=== PATIENT | male | born 1985 | race Caucasian/White ===

== ENCOUNTER → 2017-01-20 | Outpatient (CLI) | payer OTHER ==
[~2017-01-20] MED LIST: CEPH500C2 PO; DOCU-94 PO; IBUP-1450 PO; OXYC-57 PO
--- NOTE | 2017-01-20 13:20 | DIAGNOSTIC IMAGING REPORT ---
(TESTICULAR) SCROTUM-CONT CLINICAL HISTORY: 31 years-old Male presenting with PAIN IN RIGHT TESTICAL. TECHNIQUE: Real-time grayscale and color and spectral Doppler ultrasound imaging of the scrotum was performed. COMPARISON: None. FINDINGS: Right testis: Heterogeneous echogenicity and hypoechoic echotexture. There is suggestion of multiple lobular and round hypoechoic regions. Testis measures 4.1 x 1.9 x 2.8 cm. Relatively increased color Doppler flow to the right testis. Preserved arterial and venous spectral Doppler waveforms within the testis.The epididymis is enlarged although not significant hyperemic. Prominent 1.4 cm epididymal head cyst or spermatocele. Trace hydrocele. Left testis: Normal echogenicity and echotexture. Testis measures 3.9 x 1.8 x 2.0 cm. Normal color Doppler flow and arterial and venous waveforms in the testicular parenchyma. Epididymal head normal. No hydrocele. Left varicocele. Asymmetrically increased perfusion of the right testis. IMPRESSION: 1. Abnormal appearance of the right testis. Given the associated testicular hyperemia and enlargement of the right epididymis, right epididymoorchitis is the favored diagnosis. However, given the heterogeneity and discrete lobular hypoechoic regions in the right testis, a neoplastic etiology including lymphoma, seminoma, and metastatic disease cannot be excluded. Therefore, follow-up ultrasound in 4 weeks is recommended after treatment to confirm resolution. 2. No evidence of torsion. 3. Left hydrocele. Electronically signed by: Eric Giron M.D. 01/20/2017 1:19 PM Dictated Date/Time: 01/20/2017 1:10 PM
== END ==
LOC: C.ULTRBC 12:28
PROVIDERS: ATTEND Internal Medicine
DX: D40.10 Neoplasm of uncertain behavior of unspecified testis (principal); J30.9 Allergic rhinitis, unspecified; K40.90 Unilateral inguinal hernia, without obstruction or gangrene, not specified as recurrent; N43.3 Hydrocele, unspecified

== ENCOUNTER → 2017-02-01 | Outpatient (CLI) | payer OTHER ==
--- NOTE | 2017-02-01 09:46 | DIAGNOSTIC IMAGING REPORT ---
ULTRASOUND TESTES AND SCROTUM CLINICAL HISTORY: Follow-up right testicular abnormality. COMPARISON STUDY: Scrotal ultrasound dated 01/20/2017. TECHNIQUE: Real-time, grayscale, and color Doppler sonography of the testes and scrotum is performed. Images are reviewed in the transverse and longitudinal planes. FINDINGS: The testes are normal in size. The right testis measures 4.1 x 2.0 x 2.7 cm and the left testis measures 4.4 x 2.1 x 2.2 cm. There are numerous hypoechoic nodules present throughout the right testis. The largest foci measure at least 2.5 cm and 2.6 cm. These are highly concerning for testicular masses. Coarse calcifications are noted in the right testis. The left testis is heterogeneous with no discrete lesion identified. Testicular blood flow is normal and symmetric. Normal Doppler waveforms are identified in both testes. The epididymal heads are normal in appearance. The right epididymal head measures 0.8 cm in length and the left epididymal head measures 0.9 cm in length. A 1.7 cm right epididymal head cyst is identified. No varicocele or hydrocele is seen. IMPRESSION: 1. There are numerous hypoechoic nodules identified throughout the right testis. These are unchanged from 01/20/2017 and are highly concerning for testicular neoplasm. 2. The left testis is heterogeneous with no discrete lesion seen. 3. A right epididymal head cyst is incidentally noted. Electronically signed by: Slava Galarza M.D. 02/01/2017 9:44 AM Dictated Date/Time: 02/01/2017 9:38 AM
== END | disposition home or self-care (01) ==
LOC: C.ULTR 09:07
PROVIDERS: ATTEND Urology
DX: N50.3 Cyst of epididymis (principal); N50.89 Other specified disorders of the male genital organs

== ENCOUNTER → 2017-05-17 | Outpatient (CLI) | payer OTHER ==
[~2017-05-17] MED LIST changes: -DOCU-94 PO
== END | disposition home or self-care (01) ==
LOC: C.LAB1850 14:52
PROVIDERS: ATTEND Internal Medicine Critical Care Medicine
DX: R05 Cough (principal)

== ENCOUNTER 2017-07-08 06:55 | Inpatient (IN) | payer OTHER ==
[2017-06-29 10:38] VITALS: Ht 177.8 cm; Wt 90.5 kg
[~2017-07-08] VITALS: Ht 177.8 cm; Wt 90.5 kg
[2017-07-08] VITALS (10 sets, daily range): BP systolic 116–143; BP diastolic 71–83; PULSE 58–77; TEMP 36.4–37.3; O2SAT 94–100
[~2017-07-08 06:55] MED LIST changes: -CEPH500C2 PO; +DICL-201 PO; +LACTATED RINGER'S 1000ML 1,000 ML IV SCH; -OXYC-57 PO
[2017-07-08] MEDS ORDERED: NEOSTIGMINE METHYLSULFATE 5 MG/5 ML SYR ONE (07:31)
[2017-07-08] MEDS ORDERED: GLYCOPYRROLATE INJ 0.2 MG/ML VIAL ONE (07:31)
[2017-07-08] MEDS ORDERED: DEXAMETHASONE SOD INJ 4 MG/ML VIAL ONE (07:31)
[2017-07-08] MEDS ORDERED: PROPOFOL IV EMULSION 10 MG/ML 20 ML VIAL IV ONE (07:31)
[2017-07-08] MEDS ORDERED: LIDOCAINE HCL 2% 2 ML VIAL (20MG/ML) ONE (07:31)
[2017-07-08] MEDS ORDERED: ONDANSETRON INJ 2 MG/ML 2 ML VIAL ONE (07:31)
[2017-07-08] MEDS ORDERED: MIDAZOLAM HCL 1 MG/ML 2ML VIAL ONE (07:34)
[2017-07-08] MEDS ORDERED: FENTANYL CITRATE INJ 50 MCG/1 ML 2 ML VIAL ONE (07:34)
[2017-07-08] MEDS ORDERED: LARYING-O-JET KIT (LTA) ONE (07:35)
--- NOTE | 2017-07-08 08:03 | History & Physical Bridge Note ---
H&P Re-Evaluation Bridge Note: I have examined the patient, reviewed the History & Physical and in the interval since the performance of the History & Physical I have noted the following changes of clinical significance: No changes noted
[2017-07-08] MEDS ORDERED: MoRPHine SULFATE 4 MG/ML 1 ML CARP\\VIAL IV PRN (08:30)
[2017-07-08] MEDS ORDERED: PHENYLEPHRINE 100MCG/ML 5ML SYR IV PRN (08:30)
[2017-07-08] MEDS ORDERED: NALOXONE HCL 0.4 MG/1 ML VIAL/CARP IV PRN (08:30)
[2017-07-08] MEDS ORDERED: MEPERIDINE HCL 25 MG/ML CARP IV PRN (08:30)
[2017-07-08] MEDS ORDERED: LABETALOL HCL IV 5 MG/ML 20ML IV PRN (08:30)
[2017-07-08] MEDS ORDERED: ATROPINE SULFATE 0.1 MG/ML 5ML SYR IV PRN (08:30)
[2017-07-08] MEDS ORDERED: FLUMAZENIL 0.1 MG/1 ML 10 ML VIAL IV PRN (08:30)
[2017-07-08] MEDS ORDERED: EpHEDrine SULFATE INJ 50 MG/ML AMP IV PRN (08:30)
[2017-07-08] MEDS ORDERED: ONDANSETRON INJ 2 MG/ML 2 ML VIAL IV PRN ×2 (08:30→10:00)
[2017-07-08] MEDS ORDERED: BUPIVACAINE LIPOSOME 1/3% 266 MG/20 ML VIAL INFIL ONE (08:34)
[2017-07-08] MEDS ORDERED: SODIUM CHLORIDE 0.9% INJ 10 ML VIAL ONE (08:34)
[2017-07-08] MEDS ORDERED: SODIUM CHLORIDE 0.9% PF 50 ML VIAL ONE (08:34)
[2017-07-08] MEDS ORDERED: BUPIVACAINE 0.5 % 5 MG/1 ML MPF 30ML VIAL ONE (08:34)
[2017-07-08] MEDS ORDERED: CEFAZOLIN SOD 1 GM VIAL ONE (09:02)
--- NOTE | 2017-07-08 09:50 | [facility] Post Operative Brief Note ---
Immediate Operative Summary Operative Date Jul 08, 2017. 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 Bill Madsen Grind Operator Surgeon(s) Justus Mendez PA-C Estimated Blood Loss 5 mL Findings Consistent with Post-Op Diagnosis Specimens Frozen Sections #1. Right lower lobe #2. Right lower lobe #2 Sent to lab at 0920. Carried by OR aide Results called and reported to physician at 0948 Anesthesia Type General
[2017-07-08] MEDS ORDERED: MoRPHine SULFATE 2 MG/ML CARP IV PRN (10:00)
[2017-07-08] MEDS: HYDROmorphone INJ 1 MG/ML SYR IV PRN ×3 (10:04→10:16)
--- NOTE | 2017-07-08 10:21 | OPERATIVE REPORT ---
DATE OF OPERATION: 07/08/2017 PREOPERATIVE DIAGNOSES: 1. Multiple bilateral tiny pulmonary nodules. 2. History of orchiectomy for seminoma. POSTOPERATIVE DIAGNOSIS: Multiple granulomas nodules in lungs. PROCEDURE: Right thoracoscopy with wedge resection x2, right lower lobe. SURGEON: Bill Madsen MD. ASSISTED LIVING EXECUTIVE DIRECTOR: CRYSATL Ricks, (Andrea was in the room for the entirety of the case and was instrumental in holding the camera and also in closing the skin incisions at the conclusion). ANESTHESIA: General anesthesia with endotracheal intubation using single lumen tube. SPECIFICS OF PROCEDURE: Mr. 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 His metastatic workup had been apparently negative; however, a high resolution CT scan of his chest revealed multiple tiny pulmonary nodules which were concerning. His TB test has been negative. We had a long talk about this and elected to proceed with a biopsy. On 07/08/2017, the patient underwent uncomplicated right thoracoscopy with wedge resection of the right lower lobe x2. He had obvious nodules. I reviewed the frozen section with Dr. Scott Yeung and these appeared to be old granulomas. There were no necrosis and it did not appear he had an active tuberculosis. These did not appear malignant. He tolerated it well with no air leak at the conclusion of the case. DESCRIPTION OF THE PROCEDURE: The patient brought to operating room and laid in supine position. General anesthesia induced. Endotracheal intubation was performed with single lumen tube. The patient was placed in left lateral decubitus position. His right chest prepped and draped in usual sterile fashion. Two 5 mm ports were placed, 1 below the scapular tip a little bit more posteriorly and then 1 at about the fourth interspace anterior to the latissimus dorsi muscle. A 12 mm port was then placed at about the eighth interspace just above the costal margin anteriorly. There were no adhesions. His fissures were fairly complete. There were nodules evident as soon as we entered. I wedged out 2 metals sales representative samples of the right lobe. One was in the superior segment and 1 was in the basilar segment. We did these with Endo-KAROLINE staplers. He had no air leak and no bleeding with this. 266 mg of Exparel were mixed with 30 mL of 0.5% bupivacaine and 150 mL normal saline injected from the 2nd-11th rib for intercostal block intrathoracically under thoracoscopic guidance. I also injected the chest tube site and the 2 port sites quite a bit with the Exparel. He had no air leak. We placed a 24-Frisian chest tube through the anterior inferior port site and directed towards the apex. This was held with heavy silk suture. A 4-0 Monocryl was used in running continuous fashion to close the skin incisions. He was transported to the postanesthesia care unit in stable condition. I attest to the content of the Intraoperative Record and any orders documented therein. Any exception s are noted below.
--- NOTE | 2017-07-08 10:34 | DIAGNOSTIC IMAGING REPORT ---
CHEST ONE VIEW PORTABLE CLINICAL HISTORY: Right lung biopsy. COMPARISON STUDY: Chest CT May 13, 2017. FINDINGS: A right apical chest tube is in place. There is no pneumothorax. A linear density projects over the left midlung. Cardiac size is normal. Mediastinal contours are normal. There is no evidence for pulmonary edema. IMPRESSION: No pneumothorax. Right apical chest tube in place. Electronically signed by: Markel Hamilton M.D. 07/08/2017 10:32 AM Dictated Date/Time: 07/08/2017 10:31 AM
--- NOTE | 2017-07-08 10:39 | Anesthesiology Progress Note ---
Anesthesia Post Op Note Date & Time Jul 08, 2017 at 10:39 Vital Signs Pain Intensity: 4 Vital Signs Past 12 Hours Date Time Temp Pulse Resp B/P (MAP) Pulse Ox O2 Delivery O2 Flow Rate FiO2 07/08/17 10:30 61 18 139/93 98 Nasal Cannula 2 07/08/17 10:20 65 17 132/99 99 Oxymask 10 07/08/17 10:10 70 20 128/99 100 Oxymask 10 07/08/17 10:00 36.0 76 15 129/79 99 Oxymask 10 07/08/17 07:36 37.2 77 18 134/83 (100) 98 Notes Mental Status: alert / awake / arousable, participated in evaluation Pt Amnestic to Procedure: Yes Nausea / Vomiting: adequately controlled Pain: adequately controlled Airway Patency, RR, SpO2: stable & adequate BP & HR: stable & adequate Hydration State: stable & adequate Anesthetic Complications: no major complications apparent
[2017-07-08] MEDS: D5W AND 1/2NSS 1,000 ML IV SCH ×2 (11:04→20:58)
[2017-07-08] MEDS: OXYCODONE HCL IR 5 MG TAB (IMMEDIATE RELEASE) PO PRN ×2 (12:17→19:44)
[2017-07-08] MEDS: MoRPHine SULFATE 2 MG/ML CARP IV PRN ×4 (12:54→22:45)
[2017-07-08] MEDS: METOCLOPRAMIDE HCL INJ 5 MG/ML 2 ML VIAL IV. SCH (15:35)
[2017-07-08] MEDS: KETOROLAC TROMETHAMINE 15 MG/ML VIAL IV. SCH (15:36)
[2017-07-08] MEDS: ACETAMINOPHEN IV 1,000 MG in EMPTY BAG 0 ML IV SCH (15:45)
[2017-07-08] MEDS: DOCUSATE SODIUM 100 MG CAP PO SCH (20:52)
[2017-07-08] MEDS ORDERED: NURSING DECISION MEDICATION ORDER SCH (21:15)
[2017-07-08] MEDS ORDERED: COUGH DROP (SUGAR FREE) LOZ 24 LOZ/1 BOX LOZ PRN (21:30)
[2017-07-09] VITALS (7 sets, daily range): BP systolic 128–146; BP diastolic 69–83; PULSE 63–84; TEMP 36.6–37.4; O2SAT 95–98
[2017-07-09] MEDS: KETOROLAC TROMETHAMINE 15 MG/ML VIAL IV. SCH ×3 (00:07→15:28)
[2017-07-09] MEDS: ACETAMINOPHEN IV 1,000 MG in EMPTY BAG 0 ML IV SCH (00:07)
[2017-07-09] MEDS: METOCLOPRAMIDE HCL INJ 5 MG/ML 2 ML VIAL IV. SCH ×3 (00:07→15:27)
[2017-07-09] MEDS: MoRPHine SULFATE 2 MG/ML CARP IV PRN ×5 (04:53→21:54)
[2017-07-09] MEDS: ACETAMINOPHEN 325 MG TAB PO SCH ×3 (07:00→19:05)
--- NOTE | 2017-07-09 07:19 | DIAGNOSTIC IMAGING REPORT ---
CHEST ONE VIEW PORTABLE CLINICAL HISTORY: right lung bx. COMPARISON STUDY: 07/08/2017 FINDINGS: Stable remains negative for pneumothorax. Right chest tubes unchanged in location. Potential developing atelectasis left base. IMPRESSION: No pneumothorax. Right chest tube in good position. Developing atelectasis left base. The above report was generated using voice recognition software. It may contain grammatical, syntax or spelling errors. Electronically signed by: Adnres Mckoy M.D. 07/09/2017 7:18 AM Dictated Date/Time: 07/09/2017 7:18 AM
[2017-07-09] MEDS: OXYCODONE HCL IR 5 MG TAB (IMMEDIATE RELEASE) PO PRN ×3 (07:21→20:48)
--- NOTE | 2017-07-09 08:17 | Surgery Progress Note ---
Subjective Date of Service: Jul 09, 2017. Pt. doing well. he notes pain from CT, but not SOB. Tolerating oral intake. He notes he has not ambulated since surgery. Discussed with nightshift RN--discussed importance of ambulation; no concerns noted. Objective Vitals Date Time Temp Pulse Resp B/P (MAP) Pulse Ox O2 Delivery O2 Flow Rate FiO2 07/09/17 07:27 36.6 63 16 143/69 (93) 97 Room Air 07/09/17 07:17 Room Air 07/09/17 04:06 37.1 72 14 128/70 (89) 95 Room Air 07/09/17 00:05 98 Room Air 07/08/17 23:25 37.0 58 14 143/73 (96) 97 Room Air 07/08/17 19:57 37.3 67 18 120/71 (87) 97 Room Air 07/08/17 15:35 98 Room Air 07/08/17 15:05 37.1 59 19 142/81 (101) 98 Nasal Cannula 2.0 07/08/17 14:07 37.3 77 16 126/80 (95) 97 Nasal Cannula 2.0 07/08/17 12:55 36.5 66 16 126/80 (95) 100 Nasal Cannula 2.0 07/08/17 12:17 36.9 65 16 119/80 (93) 100 Nasal Cannula 2.0 07/08/17 11:23 36.5 65 16 119/80 (93) 100 Nasal Cannula 2.0 07/08/17 10:55 94 Nasal Cannula 2.0 07/08/17 10:55 94 Nasal Cannula 2.0 07/08/17 10:55 36.4 58 16 116/80 (92) 94 Nasal Cannula 2.0 07/08/17 10:45 61 17 128/89 99 Nasal Cannula 2 07/08/17 10:40 36.3 60 17 140/96 99 Nasal Cannula 2 07/08/17 10:30 61 18 139/93 98 Nasal Cannula 2 07/08/17 10:20 65 17 132/99 99 Oxymask 10 07/08/17 10:10 70 20 128/99 100 Oxymask 10 07/08/17 10:00 36.0 76 15 129/79 99 Oxymask 10 Physical Exam General: + well developed, + well nourished CV: + RRR Pulmonary: + lungs clear, + pertinent finding (slight decrease of BS at bases) , No accessory muscle use, No respiratory distress Abdomen: + non tender, + soft Extremities: No calf tenderness Neurologic: + alert & oriented x 3 Radiology CXR today shows no pneumothorax Drains / Tubes chest tube (no air leak; minimal drainage ) Assessment & Plan 32 year old male s/p RVATS with lung biopsy -path pending -all cultures are (-) to date -will likely d/c CT tomorrow and discharge -pain control measures are implemented -encourage coughing and deep breathing -discussed importance of ambulation--discussed with RN, pt. an senior care guards OTHER -lovenox is in place for DVT prevention
[2017-07-09] MEDS: ENOXAPARIN 40 MG/0.4 ML SYR SQ SCH (08:57)
[2017-07-09] MEDS: DOCUSATE SODIUM 100 MG CAP PO SCH ×2 (08:57→20:48)
[2017-07-10] MEDS: METOCLOPRAMIDE HCL INJ 5 MG/ML 2 ML VIAL IV. SCH ×2 (00:01→08:18)
[2017-07-10] MEDS: KETOROLAC TROMETHAMINE 15 MG/ML VIAL IV. SCH ×2 (00:02→08:17)
[2017-07-10] MEDS: ACETAMINOPHEN 325 MG TAB PO SCH ×2 (00:02→05:59)
[2017-07-10] MEDS: OXYCODONE HCL IR 5 MG TAB (IMMEDIATE RELEASE) PO PRN ×2 (03:45→08:28)
[2017-07-10 07:05] VITALS: BP 146/95; PULSE 71; TEMP 36.7; O2SAT 97
--- NOTE | 2017-07-10 07:23 | DIAGNOSTIC IMAGING REPORT ---
CHEST ONE VIEW PORTABLE HISTORY: 32 years-old Male lung biopsy status post right lung biopsy COMPARISON: Chest radiograph 07/09/2017 and 07/08/2017 TECHNIQUE: Portable AP view of the chest FINDINGS: Cardiac silhouette is within normal limits. Mild pulmonary vascular congestion without pneumothorax, pleural effusion, focal airspace consolidation or overt pulmonary edema. Right apical chest tube is unchanged in positioning. The bones of the chest appear grossly intact. IMPRESSION: Stable positioning of right-sided chest tube. No pneumothorax identified. The above report was generated using voice recognition software. It may contain grammatical, syntax or spelling errors. Electronically signed by: Antwan Saini M.D. 07/10/2017 7:21 AM Dictated Date/Time: 07/10/2017 7:18 AM
[2017-07-10] MEDS: DOCUSATE SODIUM 100 MG CAP PO SCH (08:55)
[2017-07-10] MEDS: ENOXAPARIN 40 MG/0.4 ML SYR SQ SCH (08:55)
--- NOTE | 2017-07-10 10:19 | Discharge Instructions ---
Discharge Instructions Date of Service Jul 10, 2017. Admission Reason for Admission: Pulmonary Nodules Discharge Discharge Diagnosis / Problem: Apparent benign nodules Discharge Goals Goal(s): Learn about illness (aiting for pathology.) Activity Recommendations Activity Limitations: as noted below Lifting Limitations: gradually increase as tolerated Exercise/Sports Limitations: gradually increase as tolerated May Resume Sexual Activity: when tolerated Shower/Bathe: may shower/bathe in 3 days Driving or Machine Use: resume 3 days after discharge . Instructions / Follow-Up Instructions / Follow-Up Remove dressing on 07-12-17 and shower. You may do whatever physical activity you feel like doing starting Tuesday, . Current Hospital Diet Patient's current hospital diet: Regular Diet Discharge Diet Recommended Diet: Regular Diet Procedures Procedures Performed: Right Video Assisted Thoracoscopy with Right lower lobe wedge biopsy Pending Studies Studies pending at discharge: yes List of pending studies: [place] pathology and cultures Medical Emergencies . Who to Call and When: Medical Emergencies: If at any time you feel your situation is an emergency, please call 911 immediately. . Non-Emergent Contact Non-Emergency issues call your: Primary Care Provider . "Provider Documentation" section prepared by Bill Madsen. .
--- NOTE | 2017-07-10 10:27 | Discharge Summary ---
Discharge Summary Date of Service Jul 10, 2017. Discharge Summary Thoracic Surgery Discharge Summary: Date of admission: 07/08/2017 Date of discharge: 07/10/2017 Hospital course: This is a 32-year-old [place] who is incarcerated. He was found to have a seminoma and underwent orchiectomy several months ago. CT scan showed multiple small pulmonary nodules bilaterally. Testing for tuberculosis was negative. I saw him in the office set him up for an elective biopsy. On 07/08/2017 the patient underwent an uncomplicated right thoracoscopy with 3 5 mm ports. We wedged out to represent examples and under frozen section the small nodules were evaluated and felt to be granulomas. There did not appear to be necrosis. We finished the case. He really had no air leak. Following day drained a bit of fluid. I felt more comfortable keeping him 1 more day and a postop day 2 and removed his 20 [place] chest tube. All incisions are clean. His x-ray look great. He was ambulating in the hallway. His pain was minimal. I discharged him back to the [facility] on 07/10/2017. Instructions were given. He is to continue his nonsteroidal anti-inflammatory drugs. He really had very little pain. I will see him back in the office in 3 weeks.
--- NOTE | 2017-07-10 10:34 | DIAGNOSTIC IMAGING REPORT ---
CHEST ONE VIEW PORTABLE HISTORY: 32 years-old Male s/p chest tube removal status post right-sided chest tube removal. Recent right lung biopsy COMPARISON: Chest radiograph 07/10/2017 TECHNIQUE: Portable AP view of the chest FINDINGS: Cardiac mediastinal and hilar silhouettes are within normal limits. There has been interval removal of the right-sided chest tube. No residual pneumothorax identified. No pleural effusion or focal airspace consolidation. Bones of the chest appear grossly intact. Linear subsegmental bibasilar opacities favor atelectasis. Suture material projects over the right hilum. IMPRESSION: Status post right-sided chest tube removal without pneumothorax identified. The above report was generated using voice recognition software. It may contain grammatical, syntax or spelling errors. Electronically signed by: Antwan Saini M.D. 07/10/2017 10:32 AM Dictated Date/Time: 07/10/2017 10:31 AM
[2017-07-10 11:48] VITALS: BP 146/95; PULSE 71; TEMP 36.7; O2SAT 97
[2017-07-10] MEDS: MoRPHine SULFATE 2 MG/ML CARP IV PRN (12:03)
== END 2017-07-10 12:40 | disposition home or self-care (01) | DRG 168 ==
LOC: C.ACU 06:55 → C.MSN 08:05 → ENRESERV 10:33
PROVIDERS: ADMIT Surgery; ATTEND Surgery
PROC: 0BBF4ZX Excision of Right Lower Lung Lobe, Percutaneous Endoscopic Approach, Diagnostic (ICD-10-PCS; principal; 2017-07-08 08:45)
DX: R91.8 Other nonspecific abnormal finding of lung field (principal); F17.200 Nicotine dependence, unspecified, uncomplicated